=== PATIENT | male | born 1955 | race Hispanic/Latino ===

== ENCOUNTER 2017-09-11 06:50 | Day surgery (SDC) | payer BC ==
[2017-09-11] MEDS ORDERED: NACL 0.9% 500 ML 500 ML IV SCH (08:00)
[2017-09-11] MEDS ORDERED: HEPARIN/NS 5000 UNIT/500ML(CATH LAB) 1,000 ML IR ONE (10:16)
[2017-09-11] MEDS: CALAN ONE ×2 (10:38→10:56)
[2017-09-11] MEDS: NITROGLYCERIN SYRINGE 3 ML ONE ×2 (10:38→10:56)
[2017-09-11] MEDS: VERSED ONE ×2 (10:39→10:53)
[2017-09-11] MEDS: HEPARIN 10,000 UNITS/10 ML ONE ×2 (10:39→10:56)
[2017-09-11] MEDS: SUBLIMAZE ONE ×2 (10:39→10:53)
[2017-09-11] MEDS: XYLOCAINE 2% INFILTRATI ONE ×2 (10:40→10:54)
--- NOTE | 2017-09-11 12:02 | Cardiac Catherization Report ---
LEFT HEART CATHETERIZATION CLINICAL INFORMATION: A 61-year-old gentleman has known coronary artery disease, had a calcium score of over 2000. In 2008, had PCI of the LAD with drug-eluting Xience stents 3.5 with rotational atherectomy. The patient was following with [facility] and was found to have an abnormal cardiac pet_ with large ischemia in the anterior region. The patient is on aspirin and statin. No beta gabriella or nitrites secondary to side effects, is here for a left heart catheterization. PROCEDURE DETAILS: Left heart catheterization performed via the right radial artery, sterile technique, local anesthesia. Normal Fran's test. Moderate sedation was supervised by me, 1 mg Versed and 50 mcg of fentanyl was given. Total sedation time of 28 minutes. Start time was 10:41 and end time was 11:08 a.m. PROCEDURE FINDINGS: Left system engaged with JL3.5 catheter. Left main is large and patent. LAD proximal and mid stents are 100% with left to left collaterals feeding into a medium caliber LAD and diagonal 1 that are patent. Circumflex is a large caliber vessel, patent. AV groove. OM1, OM2 are medium caliber vessel, patent. You see a large collateral feeding from the ho-chunk circ and AV groove into the distal PDA that retrograde fills into RCA to the distal RCA. RCA engaged with an AR mod catheter, proximal 95% lesion, mid becomes 100% calcified vessel. LV gram done in ITALIAN and REAL view shows normal LV function, LVEDP of 10 mmHg, LV was 120/10, aortic is 106/74. No gradient across the aortic valve on pullback. 5-[place] catheters were taken over guidewire, 6-[place] radial sheath was discontinued. Radial dressing applied. No hematoma, no bleeding. SUMMARY: 1. Left main patent, circumflex patent, large, and AV groove gives left to right collaterals feeding into the distal PDA and into the distal RCA which is 100% and mid portion of the RCA calcified. LAD in-stent restenosis, 100% in the proximal, mid stents with left to left collaterals feeding into medium caliber diagonal and a medium to large LAD. 2. With normal function. 3. The patient will be referred for bypass surgery. Discussed in detail with the patient, the patient's family. JOB# [id number] [facility]
[2017-09-11] MEDS ORDERED: TYLENOL ONE (12:09)
[2017-09-11] MEDS ORDERED: TYLENOL PO ONE (12:32)
--- NOTE | 2017-09-11 12:32 | Short Stay Summary ---
Short Stay Documentation Date of service: 09/11/17 - History H&P: obtained from office - Allergies and Medications Current Medications: Allergies No Known Allergies Allergy (Unverified 09/11/17 06:51) Home Medications Medication Instructions Recorded Confirmed Last Taken Type Aspirin [Aspir-Low] 81 mg PO DAILY 09/11/17 09/11/17 09/11/17 History Loratadine [Claritin] 10 mg PO DAILY 09/11/17 09/11/17 09/10/17 History Multivitamin Tab [Multiple Vitamin 1 each PO QDAY 09/11/17 09/11/17 09/10/17 History TAB (Theragran)] Pravastatin [Pravachol] 20 mg PO QHS 09/11/17 09/11/17 09/10/17 History Active Medications Sodium Chloride (Nacl 0.9% 500 Ml) 500 mls @ 50 mls/hr IV DIRECT JOSEMANUEL Stop: 09/11/17 17:59 Last Admin: 09/11/17 08:07 Dose: 50 mls/hr - Brief post op/procedure progress note Date of procedure: 09/11/17 Pre-op diagnosis: abnormal stress test; CAD Post-op diagnosis: same Anesthesia: local Estimated blood loss: none Condition: stable - Disposition Condition at discharge: Stable Disposition: [id number] TO HOME OR SELFCARE - Discharge Diagnoses (1) CAD (coronary artery disease) Status: Chronic (2) Stented coronary artery Status: Chronic Short Stay Discharge Plan Diet: low fat, low cholesterol, low salt Wound: open to air, keep clean and dry, per your surgeon's advice Follow up with: MAHESH TAYLOR MD [Primary Care Provider] - 7 Days KESHAWN SHANKS MD [Staff Physician] - 7 Days
[2017-09-11 14:27] VITALS: BP 125/77
== END 2017-09-11 13:55 | disposition home or self-care (01) ==
LOC: CATHLABREC 06:50
PROVIDERS: ATTEND Internal Medicine
DX: I25.10 Atherosclerotic heart disease of native coronary artery without angina pectoris (principal); E78.5 Hyperlipidemia, unspecified; I10 Essential (primary) hypertension; Z79.82 Long term (current) use of aspirin; Z79.899 Other long term (current) drug therapy; Z98.61 Coronary angioplasty status
CPT/HCPCS: 93005; 93010; 93458; 99156; C1894; J1644; J2250; J3010; J7040; Q9967